=== PATIENT | male | born 1985 | race Caucasian/White ===

== ENCOUNTER 2017-05-06 18:58 | Observation (INO) | payer SELFPAY ==
[~2017-05-06] VITALS: Ht 180.3 cm; Wt 92.0 kg
[~2017-05-06 18:58] MED LIST: ALBU6.7H INH; ALPR0.5T99 PO; AMOX500T PO; IBUP-232 PO; NORV100C PO; PERC2.5T PO; REYA150C4 PO; TRAM50TA PO; TRUVTAB2 PO; ZOFR4TAB3 SL
[2017-05-06 19:00] VITALS: BP 135/84; PULSE 94; RESP 16; TEMP 98.9; O2SAT 97
--- NOTE | 2017-05-06 21:30 | PD ---
HPI Chief Complaint: Edema Time Seen by Provider: 21:28 Travel History International Travel<30 days: No Contact w/Intl Traveler<30days: No Traveled to known affect area: No History of Present Illness HPI The patient is a 32 year old male who presents to the [facility] [address] emergency department with a history of a week and a half ago noticing that he was developing swelling to the left leg. He reports that it also began slowly look red along the medial aspect. He denies having any trauma or injury to that area. He reports that last night he also began to have left arm pain in the muscle associated with chest tightness and a sensation of shortness of breath with diaphoresis and nausea. He did take a low dose aspirin and the symptoms resolved after approximately 40 minutes. He reports that he had chills associated with this last night. He reports that incidentally over the last 2 days he also has had some gum pain in the right side of his mandible, and right ear pain that comes and goes. He denies having any nasal discharge, cough, congestion, sore throat, or known fevers. The patient's medical history is, located by having HIV. He was diagnosed 8 years ago. He reports that 2 months ago his medication regimen was changed when 4 months ago a blood test showed that his CD4 count had gone down to 166. He reports that his viral load however was still undetectable. He has not had a repeat check since then. He is followed by the health department for his care. The patient denies having any swelling to any other limbs. He denies using any IV drugs. Otherwise on review of systems, the patient denies any neck pain,abdominal pain, vomiting, diarrhea, urinary symptoms, or neurologic symptoms. [facility] Past Medical History Narrative Medical The patient's past medical history is significant for HIV with his last CD4 count being 166, viral load was undetectable, history of anxiety disorder. Hypertension: Yes Immune Disorder: Yes (HIV) Past Surgical History Narrative Surgical The patient's past surgical history is reportedly none. Surgical History: No Previous Surgery Social History Alcohol Use: Yes (TWICE WEEKLY) Tobacco Use: No Substance Use: No Allergies-Medications (Allergen,Severity, Reaction): Coded Allergies: Sulfa (Verified Allergy, Severe, Rash, 05/06/17) Reported Meds & Prescriptions Reported Meds & Active Scripts Active Reported Trizivir (Eqjamvds-Fnwikvlday-Vyxiqbfned) 300-150-300 Mg Tab 1 Tab PO DAILY Hazardous agent; use appropriate precautions for handling & disposal. Review of Systems Except as stated in HPI: all other systems reviewed are Neg General / Constitutional: Positive: Chills, No: Fever Eyes: No: Visual changes HENT: Positive: Dental Difficulties, No: Headaches, Rhinorrhea, Congestion Cardiovascular: Positive: Chest Pain or Discomfort, No: Dyspnea on exertion Respiratory: Positive: Shortness of Breath, No: Cough Gastrointestinal: Positive: Nausea, No: Vomiting, Diarrhea, Abdominal Pain, Constipation, Changes in Bowel Habits, Indigestion, Loss of Appetite Genitourinary: No: Urgency, Frequency, Dysuria, Flank Pain Musculoskeletal: Positive: Myalgias, Edema, Pain Skin: No Rash Neurologic: No: Weakness, Focal Abnormalities, Change in Mentation, Slurred Speech, Sensory Disturbance Psychiatric: No: Depression Endocrine: No: Polydipsia Hematologic/Lymphatic: No: Easy Bruising Physical Exam Narrative General: The patient is a well-developed well-nourished male in no acute distress. Head and Neck exam: Head is normocephalic atraumatic. Eyes: EOMI, pupils are equal round and reactive to light. Nose: Midline septum with pink mucous membranes Mouth: Dentition unremarkable. Moist mucus membranes. Posterior oropharynx is not erythematous. No tonsillar hypertrophy. Uvula midline. Airway patent. Neck: No palpable lymphadenopathy. No nuchal rigidity. No thyromegaly. No spinous process tenderness to palpation. No step-off or crepitus. No erythema or ecchymosis. Cardiovascular: Regular rate and rhythm without murmurs, gallops, or rubs. Lungs: Clear to auscultation bilaterally. No wheezes, rhonchi, or rales. Abdomen: Soft, without tenderness to palpation in all 4 quadrants of the abdomen. No guarding, rebound, or rigidity. Bowel sounds are audible. No tenderness on palpation of McBurney's point. Extremities: No clubbing, cyanosis, or edema. 2+ pulses in all 4 extremities. On examination of the patient's legs, the patient's left leg is edematous compared to the right at 1+ with trace pedal edema on the right. The patient has no calf tenderness on palpation. The patient does have erythema along the medial aspect of the left will. The patient reports having tenderness on palpation of this area. There are no open wounds noted. There is no crepitus. There is no pustule formation or vesicle formation. Back: No spinous process tenderness to palpation. No costovertebral angle tenderness to palpation. Neurologic Exam: Grossly nonfocal. Skin Exam: No other rash noted. Data Data Last Documented VS Vital Signs Date Time Temp Pulse Resp B/P Pulse Ox O2 Delivery O2 Flow Rate FiO2 05/06/17 22:00 100 Room Air 05/06/17 21:39 87 16 153/100 05/06/17 19:00 98.9 Orders Electrocardiogram (05/06/17 21:44) Complete Blood Count With Diff (05/06/17 21:44) Comprehensive Metabolic Panel (05/06/17 21:44) Creatine Kinase (Cpk) (05/06/17 21:44) Ckmb (Isoenzyme) Profile (05/06/17 21:44) Troponin I (05/06/17 21:44) B-Type Natriuretic Peptide (05/06/17 21:44) Prothrombin Time / Inr (Pt) (05/06/17 21:44) Act Partial Throm Time (Ptt) (05/06/17 21:44) Lipase (05/06/17 21:44) Urinalysis - C+S If Indicated (05/06/17 21:44) D-Dimer (05/06/17 21:44) Magnesium (Mg) (05/06/17 21:44) Thyroid Stimulating Hormone (05/06/17 21:44) Chest, Single Ap (05/06/17 21:44) Iv Access Insert/Monitor (05/06/17 21:44) Ecg Monitoring (05/06/17 21:44) Oximetry (05/06/17 21:44) Lactic Acid Sepsis Protocol (05/06/17 21:44) Blood Culture (05/06/17 21:44) Us Leg Venous Doppler (05/06/17 21:44) Sodium Chlor 0.9% 1000 Ml Inj (Ns 1000 M (05/06/17 22:45) Urine Culture (05/06/17 21:55) CKMB (05/06/17 21:50) CKMB% (05/06/17 21:50) Cefazolin 2 Gm Premix (Ancef 2 Gm Premix (05/06/17 23:15) Clindamycin Inj (Cleocin Inj) (05/06/17 23:15) Gc And Chlamydia Pcr (05/06/17 23:18) Admit Order (Ed Use Only) (05/06/17 23:19) Place In Observation (05/06/17 ) Vital Signs (Adult) Q4H (05/06/17 23:18) Activity Oob With Assistance (05/06/17 23:18) Furnace Worker / Telemetry .CONTINUOUS (05/06/17 23:18) Diet Heart Healthy (05/07/17 Breakfast) Sodium Chloride 0.9% Flush (Ns Flush) (05/06/17 23:30) Sodium Chloride 0.9% Flush (Ns Flush) (05/07/17 09:00) Basic Metabolic Panel (Bmp) (05/07/17 06:00) Complete Blood Count With Diff (05/07/17 06:00) Case Management Consult (05/06/17 23:18) Naloxone Inj (Narcan Inj) (05/06/17 23:30) Labs Laboratory Tests Test 05/06/17 05/06/17 21:50 21:55 White Blood Count 8.0 TH/MM3 Red Blood Count 4.71 MIL/MM3 Hemoglobin 14.4 GM/DL Hematocrit 42.2 % Mean Corpuscular Volume 89.6 FL Mean Corpuscular Hemoglobin 30.5 PG Mean Corpuscular Hemoglobin 34.0 % Concent Red Cell Distribution Width 12.7 % Platelet Count 225 TH/MM3 Mean Platelet Volume 8.3 FL Neutrophils (%) (Auto) 70.6 % Lymphocytes (%) (Auto) 18.4 % Monocytes (%) (Auto) 7.4 % Eosinophils (%) (Auto) 3.0 % Basophils (%) (Auto) 0.6 % Neutrophils # (Auto) 5.6 TH/MM3 Lymphocytes # (Auto) 1.5 TH/MM3 Monocytes # (Auto) 0.6 TH/MM3 Eosinophils # (Auto) 0.2 TH/MM3 Basophils # (Auto) 0.1 TH/MM3 CBC Comment DIFF FINAL Differential Comment Prothrombin Time 10.3 SEC Prothromb Time International 0.9 RATIO Ratio Activated Partial 27.9 SEC Thromboplast Time D-Dimer Quantitative (PE/DVT) 0.20 MG/L FEU Sodium Level 139 MEQ/L Potassium Level 4.0 MEQ/L Chloride Level 104 MEQ/L Carbon Dioxide Level 27.2 MEQ/L Anion Gap 8 MEQ/L Blood Urea Nitrogen 10 MG/DL Creatinine 1.01 MG/DL Estimat Glomerular Filtration 85 ML/MIN Rate Random Glucose 92 MG/DL Lactic Acid Level 1.4 mmol/L Calcium Level 8.6 MG/DL Magnesium Level 1.9 MG/DL Total Bilirubin 0.2 MG/DL Aspartate Amino Transf 32 U/L (AST/SGOT) Alanine Aminotransferase 47 U/L (ALT/SGPT) Alkaline Phosphatase 84 U/L Total Creatine Kinase 189 U/L Creatine Kinase MB 1.9 NG/ML Troponin I LESS THAN 0.02 NG/ML B-Type Natriuretic Peptide 22 PG/ML Total Protein 7.7 GM/DL Albumin 3.3 GM/DL Lipase 122 U/L Thyroid Stimulating Hormone 0.675 uIU/ML 3rd Gen Urine Color YELLOW Urine Turbidity CLEAR Urine pH 6.0 Urine Specific [place] 1.023 Urine Protein TRACE mg/dL Urine Glucose (UA) NEG mg/dL Urine Ketones NEG mg/dL Urine Occult Blood NEG Urine Nitrite NEG Urine Bilirubin NEG Urine Urobilinogen LESS THAN 2.0 MG/DL Urine Leukocyte Esterase LARGE Urine RBC 2 /hpf Urine WBC 68 /hpf Urine Squamous Epithelial 1 /hpf Cells Urine Mucus FEW /lpf Microscopic Urinalysis Comment CULTURE INDICATED Chlamydia trachomatis DNA NOT DETECTED (PCR) Neisseria gonorrhoeae DNA NOT DETECTED (PCR) MDM Medical Decision Making Medical Screen Exam Complete: Yes Emergency Medical Condition: Yes Medical Record Reviewed: Yes Differential Diagnosis DVT, versus cellulitis, versus rhabdomyolysis, versus tendinitis, versus sun exposure, versus viral syndrome, versus pneumonia, versus acute coronary syndrome Narrative Course During the course of the patients emergency department visit, the patients history, examination, and differential diagnosis were reviewed with the patient. The patient had IV access obtained and blood work sent for analysis. The patient's was on a clinical research monitor with oximetry and blood pressure monitoring. An ECG was done on arrival. The patient's ECG reveals a sinus rhythm heart rate of 87, no acute ST segment elevation or depression, T waves are inverted in V1, QRS duration is 94 ms, QTC 387 ms. The patient was initially provided normal saline 1 L IV fluid bolus, Ancef 2 g IV, clindamycin 900 mg IV. The patients laboratory studies were reviewed and remarkable for a white count of 8.0, hemoglobin 14.4, platelets 225 with 70.6 neutrophils, CMP is remarkable for GFR be 5, CPK 189, troponin I less than 0.02, BNP is 22, albumin 3.3, lipase 122, TSH 0.675, urinalysis shows large leukocyte esterase, 68 WBCs, culture indicated. PT 10.3, PTT 27.9, d-dimer 0.20 decrease the likelihood of pulmonary embolism in this patient with no other significant risk factors. Radiology studies were reviewed and remarkable for a chest x-ray that shows no acute cardiopulmonary abnormality. Ultrasound to rule out DVT shows no evidence of DVT on the left, and enlarged lymph node in the left groin. Given the patient's leg erythema on the left this is suspicious of cellulitis. The patient was given IV antibiotic to cover for this. The patient is also noted to have a urinary tract infection. Given these findings and the patient's reported chest pain last night and immunocompromise state, the patient will be admitted to the hospital for observation, IV antibiotics, and rule out serial cardiac enzyme protocol. The patients results were discussed with the patient, including the plan of care. I explained that further testing and/ or monitoring is indicated based on the patients history, examination, and/ or laboratory findings. Therefore, I recommended admission for additional evaluation. The patient expressed understanding and was agreeable with this plan. The patient was admitted to the hospital in stable condition and sent to a bed under the care of the [facility] [place]ist service. Physician Communication Physician Communication The patient's case was discussed with Dr. Nguyen who did agree to admit the patient for further evaluation and treatment at this time. Diagnosis Primary Impression: Chest pain, rule out acute myocardial infarction Additional Impressions: Urinary tract infection Qualified Code: N39.0 - Urinary tract infection without hematuria, site unspecified Cellulitis Qualified Code: L03.116 - Cellulitis of left lower extremity Low CD4 cell count determined by flow cytometry Admitting Information Admitting Physician Requests: Racheal Desai MD May 06, 2017 21:30
[2017-05-06] MEDS ORDERED: HIV (21:37)
[2017-05-06 21:39] VITALS: BP 153/100; PULSE 87; RESP 16; O2SAT 97
[2017-05-06] MEDS ORDERED: [UNRECOGNIZED DRUG - CODE] PO (21:39)
[2017-05-06 22:00] VITALS: O2SAT 100
[2017-05-06 22:20] LABS: AUTOMATED NEUTROPHIL # 5.6 TH/MM3 (1.8-7.7); BASOPHIL # 0.1 TH/MM3 (0-0.2); BASOPHIL % 0.6 % (0.0-2.0); EOSINOPHIL # 0.2 TH/MM3 (0-0.4); HEMATOCRIT 42.2 % (39.0-51.0); HEMO FLAGS DIFF FINAL; LYMPH % 18.4 % (9.0-44.0); LYMPHOCYTE # 1.5 TH/MM3 (1.0-4.8); MEAN CELL VOLUME 89.6 FL (80.0-100.0); MEAN CORPUSCULAR HEMOGLOBIN 30.5 PG (27.0-34.0); MONO % 7.4 % (0.0-8.0); NEUT % 70.6 % (16.0-70.0); PLATELET COUNT 225 TH/MM3 (150-450); RED BLOOD COUNT 4.71 MIL/MM3 (4.50-5.90); RED CELL DISTRIBUTION WIDTH 12.7 % (11.6-17.2)
--- NOTE | 2017-05-06 22:24 | RADRPT ---
EXAM DATE/TIME: 05/06/2017 21:54 [facility] COMPARISON: No previous studies available for comparison. INDICATIONS : Upper left chest and arm pain. MEDICAL HISTORY : None. SURGICAL HISTORY : None. ENCOUNTER: Initial ACUITY: 2 days PAIN SCORE: 5/10 LOCATION: Left upper chest FINDINGS: A single view of the chest demonstrates the lungs to be symmetrically aerated without evidence of mas s, infiltrate or effusion. The cardiomediastinal contours are unremarkable. Osseous structures are intact. CONCLUSION: No acute disease. Be Cabrera MD on May 06, 2017 at 22:22 Board Certified Radiologist. This report was verified electronically.
--- NOTE | 2017-05-06 22:27 | RADRPT ---
EXAM DATE/TIME: 05/06/2017 22:02 [facility] COMPARISON: No previous studies available for comparison. INDICATIONS : Left leg pain. MEDICAL HISTORY : Hypertension. HIV. Alcohol use. SURGICAL HISTORY : None. ENCOUNTER: Initial ACUITY: 1 month PAIN SCORE: 6/10 LOCATION: Left leg. TECHNIQUE: Venous ultrasound of the leg was performed from the inguinal ligament to the proximal calf. Real-dieudonne e, color Doppler and spectral tracing, compression and augmentation techniques were used. FINDINGS: There is normal compressibility of the deep venous system from the inguinal region to the proximal ca lf. No echogenic clot is seen in the lumen of the common femoral, femoral, popliteal, and posterior tibial veins. There is a normal response of the venous system to proximal and distal augmentation an d respiration. Lymph node in left groin measures 34 x 23 x 8 mm. CONCLUSION: 1. No deep venous thrombosis left leg. 2. Enlarged lymph node left groin. Be Cabrera MD on May 06, 2017 at 22:25 Board Certified Radiologist. This report was verified electronically.
[2017-05-06 22:39] LABS: BLOOD, URINE NEG (NEG); GLUCOSE,URINE NEG (NEG); KETONE, URINE NEG (NEG); MUCUS URINE FEW /lpf (OCC); NITRITE,URINE NEG (NEG); SQUAMOUS EPITHELIAL CELL URINE 1 /hpf (0-5); URINE COLOR YELLOW (YELLW/STRAW)
[2017-05-06 22:41] LABS: COMMENT (UR) CULTURE INDICATED; CULTURE IF INDICATED CULTURE INDICATED
[2017-05-06 22:42] LABS: ANION GAP 8 MEQ/L (5-15); AST (GOT) 32 U/L (15-37); BICARBONATE 27.2 MEQ/L (21.0-32.0); BLOOD UREA NITROGEN 10 MG/DL (7-18); CHLORIDE 104 MEQ/L (98-107); GLOMERULAR FILTRATION RATE 85 ML/MIN (>89); MAGNESIUM 1.9 MG/DL (1.5-2.5); SODIUM (NA) 139 MEQ/L (136-145)
[2017-05-06 22:43] LABS: ALT (GPT) 47 U/L (12-78)
[2017-05-06] MEDS ORDERED: SODIUM CHLOR 0.9% 1000 ML INJ 1,000 ML IV ONE (22:45)
[2017-05-06 22:51] LABS: APTT (PATIENT) 27.9 SEC (24.3-30.1); INTERNATIONAL NORMALIZED RATIO 0.9 RATIO; PROTHROMBIN TIME - PATIENT 10.3 SEC (9.8-11.6)
[2017-05-06 22:53] LABS: ALKALINE PHOSPHATASE 84 U/L (45-117); CREATINE KINASE 189 U/L (39-308); TOTAL BILIRUBIN ADULT 0.2 MG/DL (0.2-1.0)
[2017-05-06 23:05] LABS: CKMB 1.9 NG/ML (0.5-3.6)
[2017-05-06] MEDS ORDERED: CLINDAMYCIN INJ 900 MG in SODIUM CHLORIDE 0.9% INJ 100 ML IV ONE (23:15)
[2017-05-06] MEDS ORDERED: ceFAZolin 2 GM PREMIX 50 ML IV ONE (23:15)
[2017-05-06] MEDS ORDERED: NALOXONE HCL 0.4 MG/ML AMP IV PRN (23:30)
[2017-05-06] MEDS ORDERED: SODIUM CHLORIDE 0.9% FLUSH 10 ML FLUSH IV FLUSH PRN (23:30)
[2017-05-07] MEDS ORDERED: MORPHINE SULFATE 4 MG/ML INJ IV PUSH PRN ×2 (03:45→08:46)
[2017-05-07 04:03] LABS: AUTOMATED NEUTROPHIL # 4.2 TH/MM3 (1.8-7.7); BASOPHIL % 0.7 % (0.0-2.0); EOSINOPHIL # 0.2 TH/MM3 (0-0.4); EOSINOPHIL % 3.7 % (0.0-4.0); HEMATOCRIT 39.3 % (39.0-51.0); HEMO FLAGS DIFF FINAL; LYMPHOCYTE # 1.2 TH/MM3 (1.0-4.8); MEAN CELL VOLUME 89.8 FL (80.0-100.0); MEAN CORPUSCULAR HEMOGLOBIN 30.5 PG (27.0-34.0); MEAN CORPUSCULAR HGB CONC 33.9 % (32.0-36.0); MONO % 8.8 % (0.0-8.0); NEUT % 67.8 % (16.0-70.0); PLATELET COUNT 211 TH/MM3 (150-450); RED BLOOD COUNT 4.38 MIL/MM3 (4.50-5.90); RED CELL DISTRIBUTION WIDTH 12.9 % (11.6-17.2); WHITE BLOOD COUNT 6.1 TH/MM3 (4.0-11.0)
[2017-05-07 04:17] LABS: BICARBONATE 27.8 MEQ/L (21.0-32.0); POTASSIUM 3.9 MEQ/L (3.5-5.1)
[2017-05-07 04:18] LABS: CHLAMYDIA PCR NOT DETECTED (NOT DETECT); NEISSERIA PCR NOT DETECTED (NOT DETECT)
[2017-05-07 04:25] LABS: CREATINE KINASE 146 U/L (39-308)
[2017-05-07] MEDS: CLINDAMYCIN INJ 900 MG in SODIUM CHLORIDE 0.9% INJ 100 ML IV SCH ×4 (05:07→23:01)
[2017-05-07] MEDS ORDERED: IBUPROFEN 600 MG TAB PO ONE (05:45)
[2017-05-07 06:00] VITALS: BP 152/75; PULSE 63; RESP 16; O2SAT 97
[2017-05-07] MEDS ORDERED: MORPHINE SULFATE 8 MG/ML INJ IV PUSH PRN (08:45)
[2017-05-07] MEDS: SODIUM CHLORIDE 0.9% FLUSH 10 ML FLUSH IV FLUSH SCH ×2 (09:45→23:02)
[2017-05-07 10:19] LABS: CREATINE KINASE 154 U/L (39-308)
[2017-05-07 10:21] VITALS: BP 124/78; PULSE 65; RESP 18; O2SAT 98
--- NOTE | 2017-05-07 10:34 | HHI.HP ---
[facility]Staff Admission Diagnosis Cellulitis, pyuria, cp ro [place] Diagnoses: Chief Complaint: Left leg swelling, redness. Travel History International Travel<30 Days: No Contact w/Intl Traveler <30 Da: No Traveled to Known Affected Are: No History of Present Illness Mr. Ferraro is a pleasant 32 year old male with a history of HIV with a history of left leg swelling, redness that started about 2 weeks prior to this admission. He denies any trauma. He works a lot, pretty much 7 days a week. After work, he notices redness and swelling of his legs. He denies any fever but he had some chills. Additionally, he reports some chest discomfort as well as left arm pain, shortness of breath. He had some diaphoresis and nausea as well. He denies any cough, sore throat. He denies any abdominal pain. Denies any changes in bowel or bladder habits. He was diagnosed with HIV 8 years ago. He follows up with the health department. Apparently his last CD4 count was 166 but viral load undetectable. Review of Systems Except as stated in HPI: all other systems reviewed are Neg Past Family Social History Past Medical History HIV HTN - resolved. Past Surgical History No major surgery in the past Reported Medications Trizivir (Lrljcjye-Phcgagwneo-Alfqnyphmp) 300-150-300 Mg Tab 1 Tab PO DAILY Allergies: Coded Allergies: Sulfa (Verified Allergy, Severe, Rash, 05/06/17) Family History Dad - stroke, [place] Mom's side - Stroke. Social History Social drinker, no smoking, No illicit drugs. Physical Exam Vital Signs Vital Signs Date Time Temp Pulse Resp B/P Pulse Ox O2 Delivery O2 Flow Rate FiO2 05/07/17 10:21 65 18 124/78 98 05/07/17 09:46 20 05/07/17 06:00 63 16 152/75 97 Room Air 05/06/17 22:00 100 Room Air 05/06/17 21:39 87 16 153/100 97 05/06/17 19:00 98.9 94 16 135/84 97 Room Air Physical Exam GENERAL: This is a well-nourished, well-developed patient, in no apparent distress. SKIN: No rashes, ecchymoses or lesions. Cool and dry. HEAD: Atraumatic. Normocephalic. No temporal or scalp tenderness. EYES: Pupils equal round and reactive. Extraocular motions intact. No scleral icterus. No injection or drainage. ENT: Nose without bleeding, purulent drainage or septal hematoma. Throat without erythema, tonsillar hypertrophy or exudate. Uvula midline. Airway patent. NECK: Trachea midline. No JVD or lymphadenopathy. Supple, nontender, no meningeal signs. CARDIOVASCULAR: Regular rate and rhythm without murmurs, gallops, or rubs. RESPIRATORY: Clear to auscultation. Breath sounds equal bilaterally. No wheezes , rales, or rhonchi. GASTROINTESTINAL: Abdomen soft, non-tender, nondistended. No hepato-splenomegaly , or palpable masses. No guarding. MUSCULOSKELETAL: Extremities without clubbing, cyanosis, or edema. No joint tenderness, effusion, or edema noted. No calf tenderness. Negative Homans sign bilaterally. NEUROLOGICAL: Awake and alert. Cranial nerves II through XII intact. Motor and sensory grossly within normal limits. Five out of 5 muscle strength in all muscle groups. Normal speech. Laboratory Laboratory Tests Test 05/06/17 05/06/17 05/07/17 05/07/17 21:50 21:55 03:35 09:00 White Blood Count 8.0 6.1 Red Blood Count 4.71 4.38 Hemoglobin 14.4 13.3 Hematocrit 42.2 39.3 Mean Corpuscular Volume 89.6 89.8 Mean Corpuscular Hemoglobin 30.5 30.5 Mean Corpuscular Hemoglobin 34.0 33.9 Concent Red Cell Distribution Width 12.7 12.9 Platelet Count 225 211 Mean Platelet Volume 8.3 8.0 Neutrophils (%) (Auto) 70.6 67.8 Lymphocytes (%) (Auto) 18.4 19.0 Monocytes (%) (Auto) 7.4 8.8 Eosinophils (%) (Auto) 3.0 3.7 Basophils (%) (Auto) 0.6 0.7 Neutrophils # (Auto) 5.6 4.2 Lymphocytes # (Auto) 1.5 1.2 Monocytes # (Auto) 0.6 0.5 Eosinophils # (Auto) 0.2 0.2 Basophils # (Auto) 0.1 0.0 CBC Comment DIFF FINAL DIFF FINAL Differential Comment Prothrombin Time 10.3 Prothromb Time International 0.9 Ratio Activated Partial 27.9 Thromboplast Time D-Dimer Quantitative (PE/DVT) 0.20 Sodium Level 139 140 Potassium Level 4.0 3.9 Chloride Level 104 105 Carbon Dioxide Level 27.2 27.8 Anion Gap 8 7 Blood Urea Nitrogen 10 9 Creatinine 1.01 0.84 Estimat Glomerular Filtration 85 105 Rate Random Glucose 92 100 Lactic Acid Level 1.4 Calcium Level 8.6 8.1 Magnesium Level 1.9 Total Bilirubin 0.2 Aspartate Amino Transf 32 (AST/SGOT) Alanine Aminotransferase 47 (ALT/SGPT) Alkaline Phosphatase 84 Total Creatine Kinase 189 146 154 Creatine Kinase MB 1.9 Troponin I LESS THAN 0.02 LESS THAN 0.02 LESS THAN 0.02 B-Type Natriuretic Peptide 22 Total Protein 7.7 Albumin 3.3 Lipase 122 Thyroid Stimulating Hormone 0.675 3rd Gen Urine Color YELLOW Urine Turbidity CLEAR Urine pH 6.0 Urine Specific [place] 1.023 Urine Protein TRACE Urine Glucose (UA) NEG Urine Ketones NEG Urine Occult Blood NEG Urine Nitrite NEG Urine Bilirubin NEG Urine Urobilinogen LESS THAN 2.0 Urine Leukocyte Esterase LARGE Urine RBC 2 Urine WBC 68 Urine Squamous Epithelial 1 Cells Urine Mucus FEW Microscopic Urinalysis Comment CULTURE INDICATED Chlamydia trachomatis DNA NOT DETECTED (PCR) Neisseria gonorrhoeae DNA NOT DETECTED (PCR) Date/Time Procedure Status Source Growth 05/06/17 21:55 Urine Culture Received Urine Random Urine Pending 05/06/17 21:50 Aerobic Blood Culture Received Blood Peripheral Pending 05/06/17 21:50 Anaerobic Blood Culture Received Blood Peripheral Pending Result Diagram: 05/07/17 0335 05/07/17 033 Imaging Last Impressions Lower Extremity Ultrasound 05/06/172143 Signed Impressions: Service Date/Time: Saturday, May 06, 2017 22:02 - CONCLUSION: 1. No deep venous thrombosis left leg. 2. Enlarged lymph node left groin. Be Cabrera MD Chest X-Ray 05/06/172143 Signed Impressions: Service Date/Time: Saturday, May 06, 2017 21:54 - CONCLUSION: No acute disease. Be aCbrera MD Assessment and Plan Problem List: (1) Cellulitis ICD Code: L03.90 Status: Acute (2) HIV (human immunodeficiency virus infection) ICD Code: B20 Status: Acute Assessment and Plan Mr. Ferraro is a pleasant 32 year old male with a history of HIV who presents to the ED on 05/06/2017 due to left lower extremity swelling and redness. He also reported some chest discomfort. - Possible left lower extremity cellulitis - Ultrasound negative for any DVT. However, it shows left groin lymphadenopathy - Will continue Ancef 1g Q8hrs and Clindamycin 900mg Q6hrs. - HIV - Continue home anti-retroviral medications. Full code. Ambulation. Problem Qualifiers (1) Cellulitis: Qualified Code: L03.116 - Cellulitis of left lower extremity Rebecca Prasad DO May 07, 2017 10:34
[2017-05-07] MEDS ORDERED: [UNRECOGNIZED DRUG - OTHER] PO SCH (10:45)
[2017-05-07] MEDS: PANTOPRAZOLE SOD 40 MG DELAYED RELEASE TAB PO SCH (12:00)
[2017-05-07 15:11] VITALS: BP 124/68
[2017-05-07] MEDS: IBUPROFEN 600 MG TAB PO PRN ×2 (15:52→22:00)
[2017-05-07] MEDS: MORPHINE SULFATE 4 MG/ML INJ IV PUSH PRN ×2 (17:53→23:02)
--- NOTE | 2017-05-07 20:18 | EKG ---
Date Performed: 05/07/2017 Time Performed: 09:10:26 PTAGE: 32 years EKG: SINUS BRADYCARDIA BORDERLINE ECG PREVIOUS TRACING : 05/07/2017 03.41 Compared to prior tracing no significant change DOCTOR: Nicky Finch Interpretating Date/Time 05/07/2017 20:18:02
--- NOTE | 2017-05-07 20:41 | EKG ---
Date Performed: 05/07/2017 Time Performed: 03:41:01 PTAGE: 32 years EKG: Sinus rhythm NORMAL ECG PREVIOUS TRACING : 05/06/2017 21.48 Compared to prior tracing no significant change DOCTOR: Nicky Finch Interpretating Date/Time 05/07/2017 20:41:24
--- NOTE | 2017-05-07 20:56 | EKG ---
Date Performed: 05/06/2017 Time Performed: 21:48:47 PTAGE: 32 years EKG: Sinus rhythm NORMAL ECG NO PREVIOUS TRACING DOCTOR: Nicky Finch Interpretating Date/Time 05/07/2017 20:55:38
[2017-05-07] MEDS: ABACAVIR SULFATE 300 MG TAB PO SCH (22:00)
[2017-05-07] MEDS: ZIDOVUDINE 100 MG CAP PO SCH (22:01)
[2017-05-07 23:19] VITALS: BP 140/83; PULSE 62; RESP 20; TEMP 96.8; O2SAT 97
[2017-05-08 00:19] VITALS: PULSE 62
[2017-05-08 03:46] VITALS: BP 124/78; PULSE 64; RESP 20; TEMP 97.8; O2SAT 97
[2017-05-08] MEDS: CLINDAMYCIN INJ 900 MG in SODIUM CHLORIDE 0.9% INJ 100 ML IV SCH (03:50)
[2017-05-08] MEDS: IBUPROFEN 600 MG TAB PO PRN ×3 (03:50→17:36)
[2017-05-08] MEDS: MORPHINE SULFATE 4 MG/ML INJ IV PUSH PRN ×2 (05:30→11:09)
[2017-05-08 07:20] VITALS: BP 108/62; PULSE 61; RESP 18; TEMP 98.3; O2SAT 96
[2017-05-08] MEDS: ZIDOVUDINE 100 MG CAP PO SCH (08:50)
[2017-05-08] MEDS: ABACAVIR SULFATE 300 MG TAB PO SCH (08:50)
[2017-05-08] MEDS: SODIUM CHLORIDE 0.9% FLUSH 10 ML FLUSH IV FLUSH SCH (08:50)
[2017-05-08] MEDS: PANTOPRAZOLE SOD 40 MG DELAYED RELEASE TAB PO SCH (08:50)
[2017-05-08 09:27] VITALS: BP 138/96; PULSE 64; RESP 16; TEMP 98.5; O2SAT 96
--- NOTE | 2017-05-08 09:31 | HHI.PR ---
Subjective Remarks Follow up for left lower ext cellulitis in an HIV patient. Patient is doing well. Left lower ext swelling, redness is improved. We discussed again about his clinical symptoms. Patient states his redness, swelling sometimes appears on his right leg, sometimes left leg and sometimes left shoulder as well. He reports significant pre-tibial pain on the left lower ext. No fever, chills. Objective Vitals Vital Signs Date Time Temp Pulse Resp B/P Pulse Ox O2 Delivery O2 Flow Rate FiO2 05/08/17 07:20 98.3 61 18 108/62 96 05/08/17 03:46 97.8 64 20 124/78 97 05/08/17 00:19 62 05/07/17 23:19 96.8 62 20 140/83 97 05/07/17 15:11 67 16 124/68 99 05/07/17 10:21 65 18 124/78 98 05/07/17 09:46 20 Result Diagram: 05/07/17 0335 05/07/17 0335 Imaging Last Impressions Lower Extremity Ultrasound 05/06/172143 Signed Impressions: Service Date/Time: Saturday, May 06, 2017 22:02 - CONCLUSION: 1. No deep venous thrombosis left leg. 2. Enlarged lymph node left groin. Be Cabrera MD Chest X-Ray 05/06/172143 Signed Impressions: Service Date/Time: Saturday, May 06, 2017 21:54 - CONCLUSION: No acute disease. Be Cabrera MD Objective Remarks GENERAL: AOX3, NAD. SKIN: Warm and dry. HEAD: Normocephalic. EYES: No scleral icterus. No injection or drainage. NECK: Supple, trachea midline. No JVD or lymphadenopathy. CARDIOVASCULAR: Regular rate and rhythm without murmurs, gallops, or rubs. RESPIRATORY: Breath sounds equal bilaterally. No accessory muscle use. GASTROINTESTINAL: Abdomen soft, non-tender, nondistended. MUSCULOSKELETAL: No cyanosis, or edema. Left lower ext pre-tibial area tender to palpation. Mild erythema present. BACK: Nontender without obvious deformity. No CVA tenderness. Procedures None. A/P Problem List: (1) Cellulitis ICD Code: L03.90 Status: Acute (2) HIV (human immunodeficiency virus infection) ICD Code: B20 Status: Acute Assessment and Plan Mr. Ferraro is a pleasant 32 year old male with a history of HIV who presents to the ED on 05/06/2017 due to left lower extremity swelling and redness. He also reported some chest discomfort. - left lower extremity cellulitis - Ultrasound negative for any DVT. However, it shows left groin lymphadenopathy - Due to migratory nature of the erythematous lesions, swelling in this patient with HIV with CD4 count < 200, I was concerned about possible malignancy (Kaposi's sarcoma). I discussed with Dr. Arnulfo Sandoval who came to evaluate patient. Dr. Sandoval did not feel that patient's symptoms were consistent with Kaposi's sarcoma. - Subsequently, we discharged patient home with abx for cellulitis. - HIV - Continue home anti-retroviral medications. Full code. Ambulation. Discharge patient to home Condition on discharge: Improved Regular Diet as tolerated Ad Angelique activity Rx written: - Continue HIV meds. - Doxycycline 100mg BID X 10 days. - Dora 5/325 Q6hrs PRN #20 Follow-up with primary care physician within one week and ID on 05/16/2017. Problem Qualifiers (1) Cellulitis: Qualified Code: L03.116 - Cellulitis of left lower extremity Rebecca Prasad DO May 08, 2017 09:30
[2017-05-08 11:46] VITALS: BP 132/75; PULSE 62; RESP 18; TEMP 97.7; O2SAT 95
[2017-05-08] MEDS ORDERED: CEPHALEXIN MONOHYDRATE 500 MG CAP PO SCH (14:00)
[2017-05-08 15:38] VITALS: BP 130/77; PULSE 64; RESP 18; TEMP 97.6; O2SAT 95
[2017-05-08] MEDS ORDERED: DOXY100C PO (17:35)
--- NOTE | 2017-05-08 17:35 | HHI.DCPOC ---
Discharge Care Plan Diagnosis: (1) Cellulitis (2) HIV (human immunodeficiency virus infection) Goals to Promote Your Health * To prevent worsening of your condition and complications * To maintain your health at the optimal level Directions to Meet Your Goals Take your medications as prescribed Follow your dietary instruction Follow activity as directed Keep your appointments as scheduled Take your immunizations and boosters as scheduled If your symptoms worsen call your PCP, if no PCP go to Urgent Care Center or Emergency Room Smoking is Dangerous to Your Health. Avoid second hand smoke Call the 24-hour hour crisis hotline for domestic abuse at Yana Gutierrez PA-C May 08, 2017 5:35 pm
[2017-05-08] MEDS ORDERED: NORC5TAB PO (17:47)
--- NOTE | 2017-05-08 18:29 | MB ---
cc: CURT SCHAFFER MD DATE OF 1985. DATE OF CONSULTATION 05/08/2017. REQUESTED BY Hospitalist service. REASON FOR CONSULTATION Erythematous rash overlying the lower extremities as well as the left shoulder. Concern for Kaposi sarcoma in a patient with HIV/AIDS CHIEF COMPLAINT The patient reports having had a one-month history of an erythematous, painful rash involving the left leg. He also had areas of involvement of his right leg and the left shoulder. The patient reports the symptoms would be worse at nighttime on his lower extremities, especially after he spent the day standing at work. HISTORY OF PRESENT ILLNESS Mr. eFrraro is a very pleasant 32-year-old male. He was diagnosed eight years ago with HIV/AIDS. His risk factors for HIV are homosexuality. The patient reports having been on HAART therapy regularly up until about three months ago. He had to discontinue his medications because he lost his Medicaid insurance. He spent about two and half months off of treatment and then was resumed on therapy after he reestablished followup with a Infectious Disease doctor and regained his insurance. About three weeks ago before he restarted his HAART therapy, his CD-4 count was 50 and his HIV viral load was over 10,000. The patient's symptoms of redness, swelling and pain of the lower extremities started just before he resumed HAART therapy. He reported the symptoms worsened over the past few days and he came into the emergency department for further workup and management. He was evaluated by our ER service and hospitalist service and was assessed to have cellulitis initially and was initiated on antibiotic therapy with cefazolin and clindamycin. Over the first 24 hours of hospitalization, the erythema of the lower extremities has completely resolved. However, he does continue to have tenderness. The Hematology/Oncology service has been asked to see the patient to determine if he may have an underlying Kaposi sarcoma given the migratory and painful nature of the skin lesions. PAST MEDICAL HISTORY HIV/AIDS. PAST SURGICAL HISTORY No known invasive procedures done. FAMILY HISTORY Father had stroke and [place], mother's side stroke. SOCIAL HISTORY He is partnered. He reports socially drinking. He denies alcohol abuse. Denies tobaccoism. Denies illicit drugs. ALLERGIES SULFA DRUGS MEDICATIONS Current inpatient 1. Bacovir 300 mg p.o. b.i.d. 2. Cephalexin 100 mg p.o. q.8 h. 3. Ibuprofen 100 mg p.o. q.6 h as needed for fever. 4. Epivir 150 mg p.o. b.i.d. 5. Naloxone 0.4 mg IV as needed for over sedation. 6. Pantoprazole 40 mg p.o. daily. 7. Retrovir 200 mg p.o. b.i.d. REVIEW OF SYSTEMS 13-point review of systems are obtained. The following are the pertinent positives and negatives: CONSTITUTIONAL: The patient denies fevers but reports chills. He denies fatigue, denies weight loss or loss of appetite. HEENT: Denies headaches, blurry vision, difficulty swallowing or soreness in the throat. RESPIRATORY: Denies exertional dyspnea, cough, hemoptysis, pleuritic chest pain. CARDIOVASCULAR: Denies angina-like chest pain, PND, orthopnea, palpitations. GI: Denies nausea, vomiting, constipation, hematochezia or melena. He does report having post parandial fecal urgency. He also reports fecal incontinence. GENITOURINARY: Denies dysuria, hematuria, urinary incontinence. 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 SKIN: Please review HPI. he reports the erythematous rashes over his lower extremities. PHYSICAL EXAMINATION VITAL SIGNS: Temperature 97.6 degrees Fahrenheit, heart rate 64 beats a minute, respiratory rate 18, blood pressure 130/77, O2 sats 95% on room air. GENERAL APPEARANCE: Mr. Ferraro is a young male. He is laying in bed, appears to be in no acute distress and has a pleasant disposition. HEENT: Head atraumatic, normocephalic, conjunctivae are not pale, sclerae anicteric, EOMI, PERRLA, oral exam no pharyngeal erythema. NECK: Palpable cervical, supraclavicular lymphadenopathy. RESPIRATORY: Good air movement bilaterally. No added breath sounds. CARDIOVASCULAR: Regular rate and rhythm, S1-S2. No obvious murmurs, rubs or gallops. ABDOMEN: Protuberant belly, soft, nontender, nondistended, no palpable organ enlargement, specifically no hepatosplenomegaly, no inguinal lymphadenopathy. AXILLARY EXAMINATION: No evidence of axillary lymphadenopathy either. LOWER EXTREMITIES: No evidence of a rash. No evidence of erythema. He does, however, have tenderness of the distal left lower extremity in the pretibial area. No calf tenderness. LABORATORY FINDINGS Blood work dated 05/07/2017: WBC count 6.1, hemoglobin 13.3 gm/dl, hematocrit 39.3%, platelet count 211, absolute neutrophil count is 4.2. Chemistries: Sodium 140, potassium 3.9, chloride 106, bicarbonate 28, BUN nine, creatinine is 0.8, EGFR 105, lactic acid 1.4, calcium 8.1, creatinine kinase is 146. Microbiology: Blood cultures dated 05/06/2017 indicate no growth. Urine culture dated 05/06/2017 indicates mixed manish, probably contaminant. IMAGING STUDIES Ultrasound Doppler studies of the left lower extremity dated 05/06/2017 indicates no evidence of deep venous thrombosis, a large lymph node in the left colon was identified. ASSESSMENT Mr. Ferraro is a 32-year-old man with an eight-year history of HIV/AIDS. He reports having been on HAART therapy regularly up until about three months ago when he lost his insurance and had to discontinue therapy. The patient, while off of therapy, began to notice erythema, pain and swelling of his left leg mostly but also his right leg typically after a long day's work. 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 He resumed HAART therapy about three weeks ago and, prior to resuming HAART therapy, his CD-4 count was 50 and his HIV viral load was greater than 10,000. The patient tells me that after restarting HAART therapy his erythema, pain and swelling of the limbs worsened. He presented to [facility] for management of the symptoms. Upon presentation, he was assessed to have cellulitis and was initiated on intravenous antibiotics with cefazolin and clindamycin. Deep venous thrombosis was rule out. The hematology service was called to see him given the chronicity of the skin erythema and pain associated with it. The concern was for an underlying Kaposi sarcoma. 1. Skin erythema involving the left leg: No definite evidence of Kaposi sarcoma based on the appearance of the skin at this time as well as the history. I suspect the skin changes were likely due to cellulitis. I do not suspect migratory thrombophlebitis either given the lack of evidence of deep venous thrombosis or phlebitis. RECOMMENDATIONS From an hematologic/oncologic standpoint, I do not find any cause for concern at this time. I suspect the worsening cellulitis was likely secondary to an immune reconstitution phenomenon with resultant inflammation due to increased number of circulating lymphocytes. He has now been appropriately initiated on antibiotics and this will continue for the recommended time as per the hospitalist service. MD MAYKEL Benedict/ /5:31 PM /6:00 PM SEGUN
== END 2017-05-08 19:10 | disposition home or self-care (01) ==
LOC: NEPE 18:58 → NEDA 23:20 → NEDH 05-07 04:00 → NEPGCP 05-07 14:38
PROVIDERS: ADMIT Hospitalist; ATTEND Hospitalist
DX: L03.116 Cellulitis of left lower limb (principal); B20 Human immunodeficiency virus [HIV] disease; N39.0 Urinary tract infection, site not specified; R07.9 Chest pain, unspecified; M79.602 Pain in left arm; R06.02 Shortness of breath; R61 Generalized hyperhidrosis; R11.0 Nausea; R59.0 Localized enlarged lymph nodes; R00.1 Bradycardia, unspecified; F41.9 Anxiety disorder, unspecified
CPT/HCPCS: 71010; 80048; 80053; 81001; 82550; 82552; 83605; 83690; 83735; 83880; 84443; 84484; 85025; 85379; 85610; 85730; 87040; 87086; 87491; 87591; 93005; 93971; 96360; 99285; G0378; J0690; J2270; J7030